=== PATIENT | female | born 1960 | race Caucasian/White ===

== ENCOUNTER 2017-05-10 06:11 | Emergency (ER) | payer BC ==
[2017-05-10 06:23] VITALS: BP 111/59; BMI 22.6
--- NOTE | 2017-05-10 06:48 | DR.GENAD ---
HPI - PCP Primary Care Physician: CHELE - Complaint/Symptoms Chief Complaint Doctors Comments: Patient is complaing of cramps in her legs for the past getting worst the past 24 hours with cramps in the back of her left leg going down to her foot. States initially she could get up and walk around and take a potassium pill and the cramp would go away the the pill would only last about 45 minutes and she would take another pill or two pills at sometimes and the cramps would go away. She would take a potassium pill and it will last 45 minutes and it will come back. She denies chest pain or SOB. States she is a patient of [facility]. She denies nausea, vomiting, diarrhea, hematuria or daryl. she denies tobacco or alcohol usage. 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 She has been taking over the counter potassium for cramps for a while. States she is taking 91mg and has not had a blood potassium recently. She denies any recent trauma. Chief Complaint:: SHARP PAIN IN BOTH LEGS. - Nurses notes reviewed Nurses Notes Review: Yes - Source History Provided: Patient - Mode of Arrival Mode of Arrival: Ambulatory - Timing Onset of Chief Complaint: 05/10/17 Came on: Gradually - Duration Duration: Intermittent How lon Duration: Weeks - Location Location: lower legs - Severity Severity: Moderate, Severe - Modifying Factors Worsens:: nothing Improves:: nothing PMH - PMH Past Medical History: Yes Past Medical History: Dyslipidemia, Hypertension, Hypothyroidism Past Surgical History: Yes Surgical History: Hysterectomy - Family History History of Family Medical Conditions: Yes Family Medical History: Diabetes Mellitus, Coronary Artery Disease, Hypertension - Social History Does patient currently use any type of tobacco product: No Have you used tobacco products in the last 12 months: No Type of Tobacco Use: None Does any household member use tobacco: No Alcohol Use: None Do you use any recreational Drugs:: No Lives With: Family Lives Where: Home - infectious screening In the last 2 months have you had wt loss of >10#?: NO Have you had fever, night sweats or hemotysis?: No Have you traveled outside the country in the last 6 months?: No Isolation: Standard ROS - Review of Systems Constitutional: No Symptoms Reported. negative: See HPI, Chills, Diaphoresis, Fever, Malaise, Weakness, Irritable, Fatigue, Loss of Appetite, Other Eyes: No Symptoms Reported ENTM: No Symptoms Reported. negative: See HPI, Ear Pain, Ear Discharge, Pulling on Ears, Hearing Loss, Nose Pain, Nose Discharge, Epistaxis, Nose Congestion, Mouth Pain, Mouth Swelling, Loose Teeth, Drooling, Throat Pain, Throat Swelling, Ear Foreign Body Respiratoy: No Symptoms Reported. negative: See HPI, Productive Cough, Non- Productive Cough, Moist Cough, Dry Cough, Hacking Cough, Barking Cough, Brassy Cough, Orthopnea, Short of Breath, Stridor, Wheezing, Hemoptysis, Other Cardiovascular: No Symptoms Reported. negative: See HPI, Chest Pain, Edema, Palpitations, Syncope, Cyanosis, Skin Mottling, Other Gastrointestinal/Abdominal: No Symptoms Reported. negative: See HPI, Abdominal Pain, Constipation, Diarrhea, Nausea, Vomiting, Food Intolerance, Other Genitourinary: No Symptoms Reported, Dysuria. negative: See HPI, Discharge, Frequency, Hematuria, Pain, Bleeding, Other Neurological: No Symptoms Reported. negative: See HPI, Anxiety, Depressed, Emotional Problems, Headache, Numbness, Paresthesia, Pre-existing Deficit, Seizure, Tingling, Tremors, Weakness, Dizziness, Problems Walking, Speech Problem, Other Musculoskeletal: No Symptoms Reported, Leg (cramps) Integumentary: No Symptoms Reported. negative: See HPI, Change in Color, Change in Hair/Nails, Dryness, Lesions, Lumps, Rash, Itching, Wound, Bruises, Juandice, Other Hematologic/Lymphatic: No Symptoms Reported. negative: See HPI, Anemia, Blood Clots, Easy Bleeding, Easy Bruising, Swollen Glands, Lymphadenopathy, Other Endocrine: No Symptoms Reported. negative: See HPI, Excessive Sweating, Flushing, Intolerance to Cold, Intolerance to Heat, Increased Hunger, Increased Thirst, Increased Urine, Unexplained Weight Gain, Unexplained Weight Loss, Failure to Thrive, Decreased Appetite, Other Psychiatric: No Symptoms Reported. negative: See HPI, Anxiety, Depression, Hallucinations, Excessive crying, Suicidal, Other PE - Vital Signs Vitals: Temperature 97.6 F Pulse Rate 81 Respiratory Rate 16 Blood Pressure 111/59 O2 Sat by Pulse Oximetry 99 - General Limitations: No Limitations. negative: Language Barrier, Altered Mental Status , Physical Limitation, Other General Appearance: Alert, In No Apparent Distress. negative: Appears Intoxicated, Anxious, Lethargic, Obtunded, In Distress, Obese, Cachectic, Other - Head Head Exam: Normal Inspection, Atraumatic, Normocephalic - Eyes Eye exam: Normal Appearance, PERRL, EOMI. negative: Scleral Icterus, Conjunctival Injection, Nystagmus, Miosis, Mydrasis, Periorbital Swelling, Periorbital Tenderness, Other - ENT ENT Exam: Normal Exam, Normal Oropharynx, Normal External Ear Exam, Mucous Membranes Moist, TM's Normal Bilaterally External Ear Exam: Normal External Inspection TM/Canal Exam: Bilateral Normal Nose Exam: Normal Nose Exam Mouth Exam: Normal Inspection. negative: Drooling, Trismus, Lip Swelling, Tongue Elevation, Tongue Swelling, Laceration, Other Throat Exam: Normal Inspection, Tonsillar Erythema. negative: Tonsillomegaly, Tonsillar Exudate, R Peritonsillar Mass, L Peritonsillar Mass, Muffled Voice, Other - Neck Neck Exam: Normal Inspection, Full ROM, Trachea Midline. negative: Tenderness, Meningismus, Lymphadenopathy, Thyromegaly, Other - Chest Chest Inspection: Normal Inspection, Symmetric Chest Wall Rise. negative: Tenderness, Rash, Abscess, Other - Respiratory Respiratory Exam: Normal Lung Sounds Bilat Respiratory Exam: Bilateral Clear to Auscultation - Cardiovascular Cardiovascular Exam: Regular Rate, Normal Rhythm, Normal Heart Sounds. negative : Bradycardia, Tachycardia, Irregular Rhythm, Systolic Murmur, Diastolic Murmur , Rubs, Gallop, Clicks, JVD, +S1, +S2, +S3, +S4, Other - Abdominal Exam Abdominal Exam: Normal Inspection, Normal Bowel Sounds, Soft. negative: Distention, Tenderness, Guarding, Rebound, Rigidity, Dimnished Bowel Sounds, Hyperactive Bowel Sounds, Hypoactive Bowel Sounds, Organomegaly, Trauma, Incision, Ascites, Mass, Bruit, Pulsatile Mass, Hernia, Other Abdominal Tenderness: negative: RUQ, RLQ, LUQ, LLQ, Epigastrium, Suprapubic, Diffuse, Mild, Moderate, Severe, Other - Extremities Extremities Exam: Normal Inspection, Full ROM, Normal Capillary Refill. negative: Tenderness, Edema, Joint Swelling, Calf Tenderness, Other - Back Back Exam: Normal Inspection, Full ROM - Neurologic Neurological Exam: Alert, Oriented X3, CN II-XII Intact, Reflexes Normal. negative: Normal Gait (gait not tested) - Psychiatric Psychiatric Exam: Normal Affect, Normal Mood - Skin Skin Exam: Warm, Dry, Intact, Normal Color ROR - Labs Reviewed Laboratory Results Reviewed?: Yes (all labs and x-ray results reviewed and discussed with patient) Result Diagrams: 05/10/17 06:46 05/10/17 06:46 Laboratory: WBC 6.2 X10^3/uL (3.6-10.0) 05/10/17 06:46 RBC 3.22 X10^6/uL (3.5-5.4) L 05/10/17 06:46 Hgb 10.5 g/dL (12.0-16.0) L 05/10/17 06:46 Hct 29.6 % (36.0-47.0) L 05/10/17 06:46 MCV 91.9 fL (80.0-100.0) 05/10/17 06:46 MCH 32.6 pg (27.0-34.0) 05/10/17 06:46 MCHC 35.5 g/dL (33.0-35.0) H 05/10/17 06:46 RDW 13.7 % (11.6-16.5) 05/10/17 06:46 Plt Count 209 X10^3/uL (150.0-450.0) 05/10/17 06:46 MPV 8.2 fL (7.4-11.0) 05/10/17 06:46 Neut % 58.2 % (42.0-75.0) 05/10/17 06:46 Lymph % 32.4 % (21.0-51.0) 05/10/17 06:46 [place] % 7.8 % (0.0-13.0) 05/10/17 06:46 Eos % 0.8 % (0.9-2.9) L 05/10/17 06:46 Baso % 0.8 % (0.2-1.0) 05/10/17 06:46 Neut # 3.6 x10^3/uL (2.2-4.8) 05/10/17 06:46 Lymph # 2.0 X10^3/uL (1.3-2.9) 05/10/17 06:46 [place] # 0.5 x10^3/uL (0.3-0.8) 05/10/17 06:46 Eos # 0.0 x10^3/uL (0.0-0.2) 05/10/17 06:46 Baso # 0.1 X10^3/uL (0.0-0.1) 05/10/17 06:46 Absolute Nucleated RBC 0.0 /100WBC 05/10/17 06:46 D-Dimer < 100 ng/mL (0-400) 05/10/17 06:46 Sodium 139 mmol/L (136-145) 05/10/17 06:46 Corrected Sodium TNP 05/10/17 06:46 Potassium 4.2 mmol/L (3.5-5.1) 05/10/17 06:46 Chloride 104 mmol/L (98-107) 05/10/17 06:46 Carbon Dioxide 26.2 mmol/L (21-32) 05/10/17 06:46 BUN 32 mg/dL (7-18) H 05/10/17 06:46 Creatinine 1.40 mg/dL (0.55-1.02) H 05/10/17 06:46 Est GFR (MDRD) Af Amer 50 (>60) L 05/10/17 06:46 Est GFR (MDRD) Non-Af 41 (>60) L 05/10/17 06:46 Glucose 110 mg/dL (65-99) H 05/10/17 06:46 Calcium 8.2 mg/dL (8.5-10.1) L 05/10/17 06:46 Corrected Calcium TNP 05/10/17 06:46 Magnesium 1.9 mg/dL (1.7-2.9) 05/10/17 06:46 Total Bilirubin 0.20 mg/dL (0.2-1.0) 05/10/17 06:46 AST 15 Units/L (15-37) 05/10/17 06:46 ALT 25 Units/L (12-78) 05/10/17 06:46 Alkaline Phosphatase 51 Units/L (46-116) 05/10/17 06:46 Creatine Kinase 50 Units/L (26-192) 05/10/17 06:46 CK-MB (CK-2) 1.5 ng/mL (0-4.0) 05/10/17 06:46 CK/CKMB % Calc 3.0 % (<4) 05/10/17 06:46 Troponin I < 0.02 ng/mL (0-1.5) 05/10/17 06:46 Total Protein 6.8 g/dL (6.4-8.2) 05/10/17 06:46 Albumin 4.0 g/dL (3.4-5.0) 05/10/17 06:46 Globulin 2.8 g/dL (2.5-4.5) 05/10/17 06:46 Albumin/Globulin Ratio 1.4 Ratio (1.1-2.1) 05/10/17 06:46 Specimen Type Clean catch urine 05/10/17 07:03 Urine Color Yellow (YELLOW) 05/10/17 07:03 Urine Appearance Slightly hazy (CLEAR) 05/10/17 07:03 Urine pH 7.0 (5.0 - 8.0) 05/10/17 07:03 Ur Specific [place] 1.010 (1.000-1.030) 05/10/17 07:03 Urine Protein Negative (NEGATIVE) 05/10/17 07:03 Urine Glucose (UA) Negative (NEGATIVE) 05/10/17 07:03 Urine Ketones Negative (NEGATIVE) 05/10/17 07:03 Urine Occult Blood 1+ (NEGATIVE) 05/10/17 07:03 Urine Nitrite Negative (NEGATIVE) 05/10/17 07:03 Urine Bilirubin Negative (NEGATIVE) 05/10/17 07:03 Urine Urobilinogen Normal (NORMAL) 05/10/17 07:03 Ur Leukocyte Esterase 2+ (NEGATIVE) 05/10/17 07:03 Urine RBC 1 - 2 /HPF (NONE SEEN) 05/10/17 07:03 Urine WBC 5 -7 /HPF (NONE SEEN) 05/10/17 07:03 Ur Squamous Epith Cells Rare /HPF (NEGATIVE) 05/10/17 07:03 Urine Bacteria Trace /HPF (NEGATIVE) 05/10/17 07:03 Ur Culture Indicated? No/not indicated 05/10/17 07:03 Urine Opiates Screen Negative (NEG=<300) 05/10/17 07:03 Urine Methadone Screen Negative (NEG=<300) 05/10/17 07:03 Ur Barbiturates Screen Positive (NEG=<200) A 05/10/17 07:03 Ur Phencyclidine Scrn Negative (NEG=<25) 05/10/17 07:03 Ur Amphetamines Screen Negative (NEG=<1000) 05/10/17 07:03 U Benzodiazepines Scrn Negative (NEG=<200) 05/10/17 07:03 Urine Cocaine Screen Negative (NEG=<300) 05/10/17 07:03 U Marijuana (THC) Screen Negative (NEG=<50) 05/10/17 07:03 - Diagnosis Discharge Problem: Bilateral leg cramps, Dehydration, mild Chronic kidney disease Qualifiers: Chronic kidney disease stage: stage 3 (moderate) Qualified Code(s): N18.3 - Chronic kidney disease, stage 3 (moderate) - Discharge Plan Disposition: 01 HOME, SELF-CARE Condition: Stable Prescriptions: Orphenadrine Citrate 100 mg PO HS PRN #14 tablet.er PRN Reason: - Follow ups/Referrals Follow ups/Referrals: [facility],None [Primary Care Provider] - 3 days JOSE DUMONT [STAFF PHYSICIAN] - 3 days - Instructions Instructions: Dystonia, Chronic Kidney Disease, [id number]
[2017-05-10] MEDS ORDERED: NS 1000 ML 1,000 ML ONE (06:53)
[2017-05-10 07:00] LABS: BASOPHILS # (AUTO) 0.1 X10^3/uL (0.0-0.1); BASOPHILS % (AUTO) 0.8 % (0.2-1.0); EOSINOPHILS % (AUTO) 0.8 % (0.9-2.9); HEMATOCRIT 29.6 % (36.0-47.0); HEMOGLOBIN 10.5 g/dL (12.0-16.0); LYMPHOCYTES % (AUTO) 32.4 % (21.0-51.0); MEAN CORPUSCULAR HEMOGLOBIN 32.6 pg (27.0-34.0); MEAN CORPUSCULAR HGB CONC 35.5 g/dL (33.0-35.0); MEAN CORPUSCULAR VOLUME 91.9 fL (80.0-100.0); MEAN PLATELET VOLUME 8.2 fL (7.4-11.0); MONOCYTES # (AUTO) 0.5 x10^3/uL (0.3-0.8); MONOCYTES % (AUTO) 7.8 % (0.0-13.0); NEUTROPHILS # (AUTO) 3.6 x10^3/uL (2.2-4.8); NEUTROPHILS % (AUTO) 58.2 % (42.0-75.0); PLATELET COUNT 209 X10^3/uL (150.0-450.0); RED BLOOD COUNT 3.22 X10^6/uL (3.5-5.4); RED CELL DISTRIBUTION WIDTH 13.7 % (11.6-16.5); WHITE BLOOD COUNT 6.2 X10^3/uL (3.6-10.0)
[2017-05-10] MEDS ORDERED: NS 1000 ML 1,000 ML IV SCH (07:00)
[2017-05-10 07:09] LABS: BILIRUBIN,URINE NEGATIVE (NEGATIVE); BLOOD/HEMOGLOBIN,URINE 1+ (NEGATIVE); GLUCOSE, URINE NEGATIVE (NEGATIVE); KETONES,URINE NEGATIVE (NEGATIVE); LEUKOCYTE ESTERASE ,URINE 2+ (NEGATIVE); NITRITES,URINE NEGATIVE (NEGATIVE); PROTEIN,URINE NEGATIVE (NEGATIVE); UROBILINOGEN,URINE NORMAL (NORMAL)
[2017-05-10 07:16] LABS: BLOOD UREA NITROGEN 32 mg/dL (7-18); CALCIUM 8.2 mg/dL (8.5-10.1); CARBON DIOXIDE 26.2 mmol/L (21-32); CHLORIDE 104 mmol/L (98-107); SODIUM 139 mmol/L (136-145); TROPONIN I < 0.02 ng/mL (0-1.5); eGFR BLACK RACES 50 (>60); eGFR NON BLACK RACES 41 (>60)
[2017-05-10 07:21] LABS: ALANINE AMINOTRANSFERASE 25 Units/L (12-78); ALKALINE PHOSPHATASE 51 Units/L (46-116); ASPARTATE AMINO TRANSFERASE 15 Units/L (15-37); CREATINE KINASE 50 Units/L (26-192); CREATINE KINASE MB 1.5 ng/mL (0-4.0); MAGNESIUM 1.9 mg/dL (1.7-2.9); TOTAL PROTEIN 6.8 g/dL (6.4-8.2)
[2017-05-10 07:25] LABS: APPEARANCE,URINE SLIGHTLY HAZY (CLEAR); COLOR,URINE YELLOW (YELLOW)
[2017-05-10 07:26] LABS: BACTERIA,URINE TRACE /HPF (NEGATIVE); SQUAMOUS EPITHELIAL CELL,UR RARE /HPF (NEGATIVE)
== END 2017-05-10 08:37 | disposition home or self-care (01) ==
LOC: ER 06:11
DX: R25.2 Cramp and spasm (principal); N18.3 Chronic kidney disease, stage 3 (moderate); E86.0 Dehydration
CPT/HCPCS: 36415; 80053; 80307; 81001; 82550; 82553; 83735; 84484; 85025; 85378; 96365; 96367; 99282; 99283; A4222; G0434

== ENCOUNTER → 2017-06-25 | Outpatient (CLI) | payer BC ==
--- NOTE | 2017-06-25 11:40 | US ---
HISTORY: Chronic renal disease Study: Renal ultrasound Comparison: None Technique: Multiple sonographic images of the kidneys were obtained. The region of the urinary bladd er was evaluated as well. Findings: The right kidney measures 10.3 x 5.4 x 5.9 cm. The right renal cortical thickness measures 1.3 cm. No sonographic evidence of abnormal renal mass or hydronephrosis is identified. The left kidney measures 11.7 x 4.8 x 5.6 cm. The left renal cortical thickness measures 1.3 cm. No s onographic evidence of abnormal renal mass or hydronephrosis is identified. The urinary bladder is not well distended but otherwise grossly unremarkable. IMPRESSION: 1. Unremarkable evaluation of the kidneys. Reported By:
== END ==
LOC: RAD 09:27
PROVIDERS: ATTEND Nurse Practitioner Family
DX: N18.3 Chronic kidney disease, stage 3 (moderate) (principal)
CPT/HCPCS: 76770